=== PATIENT | male | born 1990 | race Caucasian/White ===

== ENCOUNTER 2024-12-06 15:35 | Outpatient (CLI) | payer OTHER, SELFPAY | END 2024-12-06 15:36 | disposition home or self-care (01) | LOC: NFLDREF 12-12 10:00 | PROVIDERS: Visit Provider Nurse Practitioner Family | DX: R19.7 Diarrhea, unspecified (principal); R11.0 Nausea | CPT/HCPCS: 87045; 87046; 87427 ==

== ENCOUNTER 2025-01-22 08:11 | Outpatient (CLI) | payer OTHER, SELFPAY ==
[2025-01-22 13:51] LABS: Albumin* 4.2 g/dL (3.3-5.0); Chloride* 104 mmol/L (96-114); Potassium* 4.3 mmol/L (3.6-5.1); Sodium* 139 mmol/L (135-149)
[2025-01-22 13:54] LABS: Alanine Aminotransferase* 127 U/L (4-50); Alkaline Phosphatase* 62 U/L (40-150); Anion Gap 7 mEq/L (7-15); Aspartate Amino Transferase* 52 U/L (12-35); Bilirubin Total* 0.8 mg/dL (0.1-1.5); Blood Urea Nitrogen* 15 mg/dL (5-24); Carbon Dioxide* 28 mmol/L (20-32); Cholesterol* 243 mg/dL (90-199); Creatinine* 1.0 mg/dL (0.5-1.5); Estimated Glomerular Filt Rate 101 ml/min; Total Protein* 6.7 g/dL (6.0-8.3); Triglycerides* 256 mg/dL (40-149)
[2025-01-22 13:55] LABS: Calcium* 9.0 mg/dL (8.4-10.6); Glucose* 89 mg/dL (60-115); HDL Cholesterol* 37 mg/dL (>=40)
[2025-01-22 14:10] LABS: Hepatitis B Surface Antigen* Negative (Negative)
[2025-01-22 14:18] LABS: HIV 1/2/P24 Combo Screen* Negative (Negative)
[2025-01-22 14:28] LABS: Hepatitis C Virus Antibody* Negative (Negative)
[2025-01-22 14:35] LABS: Hepatitis B Surface Antibody* Positive (Negative)
[2025-01-22 14:59] LABS: Chlamydia DNA Amplified* NOT DETECTED (No Detected); GC DNA Amplified* NOT DETECTED (No Detected)
== END 2025-01-22 08:12 | disposition home or self-care (01) ==
PROVIDERS: Visit Provider Family Medicine
DX: Z11.3 Encounter for screening for infections with a predominantly sexual mode of transmission (principal); Z13.1 Encounter for screening for diabetes mellitus; Z00.00 Encounter for general adult medical examination without abnormal findings; Z13.6 Encounter for screening for cardiovascular disorders
CPT/HCPCS: 80053; 80061; 83036; 86592; 86703; 86706; 86803; 87340; 87491; 87591